=== PATIENT | female | born 1990 | race Caucasian/White ===

== ENCOUNTER 2023-08-16 10:54 | Day surgery (SDC) | payer OTHER, SELFPAY ==
[2023-08-16] VITALS (9 sets, daily range): BP systolic 96–124; BP diastolic 46–79; BMI 20.8
[2023-08-16 08:31] LABS: HCG, Urine Qualitative Screen Negative
[2023-08-16] MEDS: TORADOL 15 MG IV (11:11)
== END 2023-08-16 12:08 | disposition home or self-care (01) ==
LOC: SDS 10:54
PROVIDERS: ATTENDING PHYSICIAN Obstetrics & Gynecology
DX: R87.613 High grade squamous intraepithelial lesion on cytologic smear of cervix (HGSIL) (principal); N72 Inflammatory disease of cervix uteri
CPT/HCPCS: 57522; 88307; 81025; 88341; 88342